=== PATIENT | female | born 1945 | race Two or more races ===

== ENCOUNTER 2022-09-03 17:51 | Inpatient (IN) | payer MEDICARE, OTHER ==
[~2022-09-03] VITALS: Ht 160 cm; Wt 60.9 kg
[2022-09-03 18:26] VITALS: PULSE 76; RESP 18; O2SAT 96
[2022-09-03] MEDS ORDERED: MORPHINE SULFATE 4 MG/ML SYR/VIAL IV ONE (18:30)
[2022-09-03] MEDS ORDERED: ONDANSETRON HCL 4 MG/2 ML VIAL IV ONE (18:30)
[2022-09-03 19:05] LABS: Basophils # (auto) 0.1 10 ^3/uL (0-0.2); Basophils % (auto) 1.3 % (0.0-2.0); Eosinophils # (auto) 0 10 ^3/uL (0-0.8); Eosinophils % (auto) 0.6 % (0.0-7.0); Hematocrit 40.8 % (36.0-46.0); Hemoglobin 13.7 g/dL (12.2-16.2); Lymphocytes # (auto) 1.1 10 ^3/uL (0.4-5.4); Lymphocytes % (auto) 16.8 % (10.0-50.0); Mean Corpuscular Hemoglobin 29.6 pg (28.0-32.0); Mean Corpuscular Hgb Conc. 33.6 g/dL (32.0-36.0); Mean Corpuscular Volume 88.1 fL (80.0-100.0); Monocytes # (auto) 0.5 10 ^3/uL (0-1.3); Monocytes % (auto) 8.3 % (0.0-12.0); Neutrophils # (auto) 4.6 10 ^3/uL (1.6-8.6); Red Blood Cells 4.63 10^6/uL (4.0-5.20); Red Cell Distribution Width 13.3 % (11.8-14.3); White Blood Cell 6.3 10^3/uL (4.4-10.8)
[2022-09-03 19:28] LABS: INR 1.04 (0.9-1.15); Partial Thromboplastin Time 23.4 SEC (24.5-34.5)
[2022-09-03 19:30] VITALS: PULSE 102; RESP 20; O2SAT 93
[2022-09-03] MEDS ORDERED: HYDROmorphone HCL 2 MG/ML VL/or syr IV ONE (19:30)
[2022-09-03 19:46] LABS: Albumin 3.6 g/dL (3.4-5.0); BUN/Creatinine Ratio 36.5 (10.0-20.0); Calcium 8.8 mg/dL (8.5-10.1); Potassium 4.5 mmol/L (3.5-5.1)
[2022-09-03 19:49] LABS: Bilirubin, Total 0.4 mg/dL (0.2-1.0); Total Protein 6.2 g/dL (6.4-8.2)
[2022-09-03] MEDS ORDERED: diazePAM 2 MG TAB PO ONE (21:15)
[2022-09-03] MEDS ORDERED: HYDROmorphone HCL 2 MG/ML VL/or syr IV PRN (21:30)
[2022-09-03] MEDS ORDERED: ONDANSETRON HCL 4 MG/2 ML VIAL IV PRN (21:30)
[2022-09-03] MEDS ORDERED: HYDROcodone-ACET 5/325MG TAB PO PRN (21:30)
[2022-09-03] MEDS ORDERED: DOCUSATE SOD 100 MG CAP PO PRN (21:30)
[2022-09-03] MEDS ORDERED: D5W/SOD CHL 0.45% 1,000 ML IV SCH (21:30)
[2022-09-03] MEDS ORDERED: hydrALAZINE HCL 20 MG/ML VL IV PRN (21:45)
[2022-09-03] MEDS ORDERED: AZITHROMYCIN 500MG/ 250ML 250 ML IV ONE (22:00)
[2022-09-03] MEDS: FAMOTIDINE (10MG/ML) 2ML VL IV SCH (22:18)
[2022-09-03] MEDS ORDERED: MORPHINE SULFATE INJ 2 MG/ml SYRG IV PRN (23:45)
[2022-09-03] MEDS ORDERED: NITROGLYCERIN 0.4 MG SL TAB SL PRN (23:45)
[2022-09-04] VITALS (25 sets, daily range): BP systolic 75–121; BP diastolic 48–66; PULSE 68–105; RESP 14–20; TEMP 98–98.6; O2SAT 91–99
[2022-09-04] MEDS ORDERED: LORazepam 2MG/ML-1ML VIAL IV PRN
[2022-09-04] MEDS ORDERED: LORazepam 2MG/ML-1ML VIAL IV ONE
[2022-09-04 02:52] LABS: Urine Bacteria MANY /hpf (None Seen); Urine Blood Negative /uL (Negative); Urine Mucus FEW (None Seen); Urine Specific Gravity 1.026 (1.001-1.035); Urine WBC 3 /hpf (0 - 5)
[2022-09-04 05:11] LABS: Basophils # (auto) 0 10 ^3/uL (0-0.2); Basophils % (auto) 0.5 % (0.0-2.0); Eosinophils # (auto) 0 10 ^3/uL (0-0.8); Hematocrit 39.9 % (36.0-46.0); Hemoglobin 13.6 g/dL (12.2-16.2); Lymphocytes # (auto) 0.5 10 ^3/uL (0.4-5.4); Lymphocytes % (auto) 5.8 % (10.0-50.0); Mean Corpuscular Hemoglobin 30.2 pg (28.0-32.0); Mean Corpuscular Hgb Conc. 34.1 g/dL (32.0-36.0); Mean Corpuscular Volume 88.6 fL (80.0-100.0); Monocytes # (auto) 0.7 10 ^3/uL (0-1.3); Monocytes % (auto) 8.1 % (0.0-12.0); Neutrophils # (auto) 7.7 10 ^3/uL (1.6-8.6); Neutrophils % (auto) 85.6 % (37.0-80.0); Red Blood Cells 4.51 10^6/uL (4.0-5.20); Red Cell Distribution Width 13.5 % (11.8-14.3); White Blood Cell 8.9 10^3/uL (4.4-10.8)
[2022-09-04 05:43] LABS: Albumin 3.4 g/dL (3.4-5.0); Calcium 8.2 mg/dL (8.5-10.1)
[2022-09-04 06:01] LABS: Bilirubin, Total 0.7 mg/dL (0.2-1.0); Total Protein 6.6 g/dL (6.4-8.2)
[2022-09-04] MEDS ORDERED: ALBUTEROL SULF 2.5 MG/0.5ML(0.5%) NEB SOLN ONE (08:57)
[2022-09-04] MEDS ORDERED: VANCOMYCIN HCL 1000 MG VL ONE (08:57)
[2022-09-04] MEDS ORDERED: TRANEXAMIC ACID 20 ML ONE (08:59)
[2022-09-04] MEDS ORDERED: BUPIVACAINE 0.25% INJ 50ML VIAL ONE (08:59)
[2022-09-04] MEDS ORDERED: ALBUTEROL SULF 2.5 MG/0.5ML(0.5%) NEB SOLN NEB ONE (09:00)
[2022-09-04] MEDS ORDERED: BUPIVACAINE 0.5% P/F INJ 10 ML VIAL ONE (09:01)
[2022-09-04] MEDS ORDERED: ONDANSETRON HCL 4 MG/2 ML VIAL ONE (09:06)
[2022-09-04] MEDS ORDERED: PHENYLEPHRINE HCL 10 MG/ML VL ONE (09:06)
[2022-09-04] MEDS ORDERED: ePHEDrine SULFATE 50 MG/ML AMP ONE (09:06)
[2022-09-04] MEDS ORDERED: DexAMETHasone SOD PHOS 10MG/1ML VIAL INJ ONE (09:06)
[2022-09-04] MEDS ORDERED: MORPHINE SULF PF 5 MG/10 ML VIAL ONE (09:06)
[2022-09-04] MEDS ORDERED: fentaNYL CITRATE 100 MCG/2 ML VL ONE (09:06)
[2022-09-04] MEDS ORDERED: GLYCOPYRROLATE 0.2 MG/ML 1ML VIAL ONE (09:06)
[2022-09-04] MEDS ORDERED: PROPOFOL 10 MG/ML 20 ML IV ONE (09:06)
[2022-09-04] MEDS ORDERED: KETAMINE HCL 10 ML ONE (09:07)
[2022-09-04] MEDS ORDERED: MIDAZOLAM HCL 2MG/2ML 2ml VIAL (1mg/ml) ONE (09:07)
[2022-09-04] MEDS ORDERED: ceFAZolin 1GM/50ML 50 ML IV ONE (09:27)
[2022-09-04] MEDS ORDERED: ENOXAPARIN SOD 40 MG/0.4 ML SYRINGE SC SCH (10:00)
[2022-09-04] MEDS ORDERED: SUCCINYLCHOLINE CHLORIDE 20 MG/ML 10ML VIAL IV ONE (10:02)
[2022-09-04] MEDS ORDERED: ceFAZolin 1GM VL ONE (10:15)
[2022-09-04] MEDS ORDERED: LABETALOL HCL 5 MG/ML ML 20ML VIAL IV ONE (11:09)
[2022-09-04] MEDS ORDERED: NALOXONE HCL 0.4 MG/ML VIAL IV PRN (12:15)
[2022-09-04] MEDS ORDERED: DexAMETHasone SOD PHOS 10MG/1ML VIAL INJ IV PRN (12:15)
[2022-09-04] MEDS ORDERED: ONDANSETRON HCL 4 MG/2 ML VIAL IV PRN (12:15)
[2022-09-04] MEDS ORDERED: KETOROLAC TROMETH 30 MG/ML 1ML VIAL IV PRN (12:15)
[2022-09-04] MEDS ORDERED: diphenhdrAMINE HCL 50 MG/1 ML VL IV PRN (12:15)
[2022-09-04] MEDS ORDERED: ALBUTEROL SULF 2.5 MG/0.5ML(0.5%) NEB SOLN NEB SCH (14:00)
[2022-09-04] MEDS: FAMOTIDINE (10MG/ML) 2ML VL IV SCH ×2 (14:10→21:31)
[2022-09-04] MEDS: AZITHROMYCIN 500MG/ 250ML 250 ML IV SCH (14:10)
[2022-09-04] MEDS: SODIUM CHLORIDE 0.9% 1,000 ML IV SCH ×2 (14:11→21:32)
[2022-09-04] MEDS: ceFAZolin 2 GM/D5W100ml 100 ML IV SCH (18:07)
[2022-09-04] MEDS: ALBUTEROL SULF 2.5 MG/0.5ML(0.5%) NEB SOLN NEB SCH (19:39)
[2022-09-05] VITALS (18 sets, daily range): BP systolic 85–146; BP diastolic 52–102; PULSE 64–110; RESP 15–99; TEMP 98–98.3; O2SAT 16–99
[2022-09-05] MEDS: ceFAZolin 2 GM/D5W100ml 100 ML IV SCH (03:26)
[2022-09-05 06:11] LABS: Basophils # (auto) 0 10 ^3/uL (0-0.2); Basophils % (auto) 0.2 % (0.0-2.0); Eosinophils # (auto) 0 10 ^3/uL (0-0.8); Eosinophils % (auto) 0.1 % (0.0-7.0); Hematocrit 30.9 % (36.0-46.0); Hemoglobin 10.6 g/dL (12.2-16.2); Lymphocytes # (auto) 0.7 10 ^3/uL (0.4-5.4); Lymphocytes % (auto) 8.4 % (10.0-50.0); Mean Corpuscular Hemoglobin 30.1 pg (28.0-32.0); Mean Corpuscular Hgb Conc. 34.4 g/dL (32.0-36.0); Mean Corpuscular Volume 87.7 fL (80.0-100.0); Monocytes % (auto) 11.5 % (0.0-12.0); Neutrophils # (auto) 6.8 10 ^3/uL (1.6-8.6); Neutrophils % (auto) 79.8 % (37.0-80.0); Red Blood Cells 3.53 10^6/uL (4.0-5.20); White Blood Cell 8.5 10^3/uL (4.4-10.8)
[2022-09-05 06:33] LABS: Potassium 3.9 mmol/L (3.5-5.1)
[2022-09-05 06:40] LABS: BUN/Creatinine Ratio 21.7 (10.0-20.0)
[2022-09-05] MEDS: ALBUTEROL SULF 2.5 MG/0.5ML(0.5%) NEB SOLN NEB SCH (06:44)
[2022-09-05] MEDS: SODIUM CHLORIDE 0.9% 1,000 ML IV SCH ×2 (09:30→17:48)
[2022-09-05] MEDS: ENOXAPARIN SOD 40 MG/0.4 ML SYRINGE SC SCH (09:31)
[2022-09-05] MEDS: FAMOTIDINE (10MG/ML) 2ML VL IV SCH ×2 (09:31→22:00)
[2022-09-05] MEDS: AZITHROMYCIN 500MG/ 250ML 250 ML IV SCH (09:31)
[2022-09-05] MEDS ORDERED: ALBUTEROL SULF 2.5 MG/0.5ML(0.5%) NEB SOLN NEB PRN (12:00)
[2022-09-06] VITALS (9 sets, daily range): BP systolic 127–160; BP diastolic 73–98; PULSE 85–110; RESP 17–19; TEMP 36.8; O2SAT 92–98
[2022-09-06] MEDS: ACETAMINOPHEN 325 MG TAB PO PRN ×2 (04:12→14:10)
[2022-09-06] MEDS: SODIUM CHLORIDE 0.9% 1,000 ML IV SCH (04:19)
[2022-09-06] MEDS: AZITHROMYCIN 500MG/ 250ML 250 ML IV SCH (09:19)
[2022-09-06] MEDS: FAMOTIDINE (10MG/ML) 2ML VL IV SCH (09:19)
[2022-09-06] MEDS: ENOXAPARIN SOD 40 MG/0.4 ML SYRINGE SC SCH (09:24)
== END 2022-09-06 18:53 | DRG 521 ==
LOC: EDBD 17:51 → ER 17:51 → TELE 23:46 → TELE-WESTW 09-04 13:30
PROVIDERS: ADMIT Nurse Practitioner Family; ATTEND Family Medicine
PROC: 0SRS019 Replacement of Left Hip Joint, Femoral Surface with Metal Synthetic Substitute, Cemented, Open Approach (ICD-10-PCS; principal; 2022-09-04 09:31)
DX: S72.002A Fracture of unspecified part of neck of left femur, initial encounter for closed fracture (principal); J18.9 Pneumonia, unspecified organism; W10.1XXA Fall (on)(from) sidewalk curb, initial encounter; Z20.822 Contact with and (suspected) exposure to COVID-19; M54.9 Dorsalgia, unspecified; G89.29 Other chronic pain; Y93.89 Activity, other specified; Y92.89 Other specified places as the place of occurrence of the external cause; Y99.8 Other external cause status
CPT/HCPCS: 36415; 71045; 72170; 73501; 80048; 80053; 81001; 85025; 85610; 85730; 86850; 86900; 86901; 87426; 87804; 94640; 96365; 96375; 96376; 97110; 97116; 97163; 97530; G0378; J0330; J0690; J1100; J2250; J2405; J2704; J3490

== ENCOUNTER → 2022-09-11 | Emergency (ER) | payer MEDICARE | END | disposition left against medical advice (07) | LOC: ER 19:52 | DX: T81.49XA Infection following a procedure, other surgical site, initial encounter (principal); Z53.21 Procedure and treatment not carried out due to patient leaving prior to being seen by health care provider ==

== ENCOUNTER 2022-09-12 13:19 | Emergency (ER) | payer MEDICARE | END 2022-09-12 13:32 | disposition left against medical advice (07) | LOC: ER 13:19 | DX: Z48.00 Encounter for change or removal of nonsurgical wound dressing (principal); Z53.21 Procedure and treatment not carried out due to patient leaving prior to being seen by health care provider ==

== ENCOUNTER 2022-09-12 17:48 | Emergency (ER) | payer MEDICARE ==
[~2022-09-12] VITALS: Ht 157.5 cm; Wt 55.3 kg
[2022-09-12 18:45] LABS: Basophils # (auto) 0.1 10 ^3/uL (0-0.2); Basophils % (auto) 1.1 % (0.0-2.0); Eosinophils # (auto) 0.1 10 ^3/uL (0-0.8); Hematocrit 36.4 % (36.0-46.0); Hemoglobin 12.1 g/dL (12.2-16.2); Lymphocytes # (auto) 1.3 10 ^3/uL (0.4-5.4); Lymphocytes % (auto) 17.8 % (10.0-50.0); Mean Corpuscular Hemoglobin 29.3 pg (28.0-32.0); Mean Corpuscular Hgb Conc. 33.1 g/dL (32.0-36.0); Mean Corpuscular Volume 88.4 fL (80.0-100.0); Monocytes # (auto) 0.9 10 ^3/uL (0-1.3); Monocytes % (auto) 12.6 % (0.0-12.0); Neutrophils % (auto) 67.5 % (37.0-80.0); Nucleated Red Blood Cells % 0.2 %; Red Blood Cells 4.12 10^6/uL (4.0-5.20); Red Cell Distribution Width 13.5 % (11.8-14.3); White Blood Cell 7.4 10^3/uL (4.4-10.8)
[2022-09-12 19:01] LABS: Albumin 2.9 g/dL (3.4-5.0); Calcium 8.6 mg/dL (8.5-10.1)
[2022-09-12 19:05] LABS: BUN/Creatinine Ratio 34.4 (10.0-20.0); Bilirubin, Total 0.4 mg/dL (0.2-1.0); Total Protein 6.3 g/dL (6.4-8.2)
[2022-09-12 22:00] VITALS: BP 131/64; PULSE 100; RESP 18; TEMP 98.6; O2SAT 98
== END 2022-09-12 22:45 | disposition home or self-care (01) ==
LOC: ER 17:48
DX: M79.89 Other specified soft tissue disorders (principal); Z48.01 Encounter for change or removal of surgical wound dressing; Z98.890 Other specified postprocedural states
CPT/HCPCS: 36415; 80053; 85025; 93971